=== PATIENT | female | born 1985 | race Caucasian/White ===

== ENCOUNTER 2018-06-06 16:56 | Emergency (ER) | payer MEDICAID ==
[2018-06-06] MEDS ORDERED: HYDROCODONE/APAP 5/325MG TABLET PO ONE (18:45)
--- NOTE | 2018-06-06 18:57 | Emergency Department Record ---
History of Present Illness - General Chief Complaint: Multiple trauma Stated Complaint: INJURY TO RT HAND Time Seen by Provider: 06/06/18 18:45 Source: Patient Mode of Arrival: Ambulatory Limitations: No limitations - History of Present Illness Initial Comments: pt hit wall last night w alon gandhi MD Complaint: Injury Location - Extremities: Right: Forearm, Hand Consistency: Constant - Related Data Home Medications Medication Instructions Recorded Confirmed Last Taken No Home Med [NO HOME MEDS] 06/06/18 06/06/18 Unknown Allergies Allergy/AdvReac Type Severity Reaction Status Date / Time amoxicillin [From Augmentin] Allergy HIVES Verified 06/06/18 17:39 cefazolin Allergy HIVES Verified 06/06/18 17:41 clavulanic acid Allergy HIVES Verified 06/06/18 17:39 [From Augmentin] Penicillins Allergy HIVES Verified 06/12/14 13:11 sulfamethoxazole Allergy HIVES Verified 06/06/18 17:39 [From Bactrim] trimethoprim [From Bactrim] Allergy HIVES Verified 06/06/18 17:39 Travel Screening - Travel/Exposure Within Last 30 Days Have you traveled within the last 30 days?: No - Travel/Exposure Within Last Year Have you traveled outside the [place] in the last year?: No - Additonal Travel Details Have you been exposed to anyone with a communicable illness?: No - Travel Symptoms Symptom Screening: None Review of Systems Reviewed: No additional complaints except as noted below Constitutional: Reports: As per HPI. Denies: Chills, Fever, Malaise, Night sweats, Weakness, Weight change Eyes: Reports: As per HPI. Denies: Eye discharge, Eye pain, Photophobia, Vision change ENT: Reports: As per HPI. Denies: Congestion, Dental pain, Ear pain, Epistaxis , Hearing loss, Throat pain Respiratory: Reports: As per HPI. Denies: Cough, Dyspnea, Hemoptysis, Stridor, Wheezes Cardiovascular: Reports: As per HPI. Denies: Arrhythmia, Chest pain, Dyspnea on exertion, Edema, Murmurs, Orthopnea, Palpitations, Paroxysmal nocturnal dyspnea, Rheumatic Fever, Syncope Endocrine: Reports: As per HPI. Denies: Fatigue, Heat or cold intolerance, Polydipsia, Polyuria Gastrointestinal: Reports: As per HPI. Denies: Abdominal pain, Constipation, Diarrhea, Hematemesis, Hematochezia, Melena, Nausea, Vomiting Genitourinary: Reports: As per HPI. Denies: Abnormal menses, Discharge, Dyspareunia, Dysuria, Frequency, Hematuria, Incontinence, Retention, Urgency Musculoskeletal: Reports: As per HPI. Denies: Arthralgia, Back pain, Gout, Joint swelling, Myalgia, Neck pain Skin: Reports: As per HPI. Denies: Bruising, Change in color, Change in hair/ nails, Lesions, Pruritus, Rash Neurological: Reports: As per HPI. Denies: Abnormal gait, Confusion, Headache, Numbness, Paresthesias, Seizure, Tingling, Tremors, Vertigo, Weakness Psychiatric: Reports: As per HPI. Denies: Anxiety, Auditory hallucinations, Depression, Homicidal thoughts, Suicidal thoughts, Visual hallucinations Hematological/Lymphatic: Reports: As per HPI. Denies: Anemia, Blood Clots, Easy bleeding, Easy bruising, Swollen glands Past Medical History - SOCIAL HISTORY Smoking Status: Never smoker Alcohol Use: None Drug Use: None - RESPIRATORY Hx Respiratory Disorders: No - CARDIOVASCULAR Hx Cardio Disorders: No - NEURO Hx Neuro Disorders: No - GI Hx GI Disorders: No - Hx Genitourinary Disorders: No - ENDOCRINE Hx Endocrine Disorders: No - MUSCULOSKELETAL Hx Musculoskeletal Disorders: No - PSYCH Hx Psych Problems: Yes Hx Anxiety: Yes - HEMATOLOGY/ONCOLOGY Hx Hematology/Oncology Disorders: No Family Medical History Any Significant Family History?: Yes Hx Alcohol Use: Mother Hx Heart Disease: Grandparents Physical Exam - General General Appearance: Alert, Oriented x3, Cooperative, Mild distress - Head Head exam: Normal inspection - Eye Eye exam: Normal appearance, PERRL, EOMI Pupils: Normal accommodation - ENT ENT exam: Normal exam, Mucous membranes moist, Normal external ear exam, Normal orophraynx Ear exam: Normal external inspection. negative: External canal tenderness Nasal Exam: Normal inspection. negative: Discharge, Sinus tenderness Mouth exam: Normal external inspection, Tongue normal Teeth exam: Normal inspection. negative: Dental caries Throat exam: Normal inspection. negative: Tonsillar erythema, Tonsillar exudate - Neck Neck exam: Normal inspection, Full ROM. negative: Tenderness - Respiratory Respiratory exam: Normal lung sounds bilaterally. negative: Respiratory distress - Cardiovascular Cardiovascular Exam: Regular rate, Normal rhythm, Normal heart sounds - GI/Abdominal GI/Abdominal exam: Soft, Normal bowel sounds. negative: Tenderness - Rectal Rectal exam: Deferred - exam: Deferred - Extremities Extremities exam: Normal capillary refill, Tenderness Image of Hand: 1 - ecchymosis - Back Back exam: Reports: Normal inspection, Full ROM. Denies: Muscle spasm, Rash noted, Tenderness - Neurological Neurological exam: Alert, CN II-XII intact, Normal gait, Oriented X3 - Psychiatric Psychiatric exam: Normal affect, Normal mood - Skin Skin exam: Dry, Intact, Normal color, Warm Course Vital Signs 06/06/18 17:28 Temperature 98.5 F Pulse Rate 71 Respiratory 17 Rate Blood Pressure 130/90 Pulse Ox 97 Disposition Disposition: Discharge Clinical Impression: Fracture of hand Qualifiers: Encounter type: initial encounter Fracture type: closed Laterality: right Qualified Code(s): S62.91XA - Unspecified fracture of right wrist and hand, initial encounter for closed fracture Disposition: Home, Self-Care Condition: (1) Good Instructions: Hand Fracture (ED) Additional Instructions: follow up with dr loaiza. return sooner if worse. ice and elevate. motrin for pain. Referrals: PEBBLES LOAIZA [DOCTOR OF OSTEOPATH] - [facility] Specialty Clinics [Provider Group] Quality - Quality Measures Quality Measures: N/A - Blood Pressure Screening Does Patient Have Any of the Following: No Blood Pressure Classification: Hypertensive Reading Systolic Measurement: 130 Diastolic Measurement: 90 Screening for High Blood Pressure: < Pre-Hypertensive BP, F/U Documented > [ G8950] Pre-Hypertensive Follow-up Interventions: Follow-up with rescreen every year.
--- NOTE | 2018-06-07 09:22 | RADIOLOGY REPORT ---
EXAM: RIGHT HAND, THREE VIEWS HISTORY: PAIN IN FOURTH AND FIFTH DIGIT REGION AFTER PUNCHING WALL. TECHNIQUE: Three views of the right hand were obtained. Comparison: None. Encounter: Initial. FINDINGS: There is normal bone mineralization. There is subtle obliquely oriented linear lucency involving the distal aspect of the fifth metacarpal extending to the lateral cortical surface suspicious for nondisplaced fracture. Its distal extent is not optimally delineated and intraarticular extension would be difficult to exclude. No other osseous evidence of fracture nor is there dislocation. The articular relations are otherwise unremarkable. IMPRESSION: NONDISPLACED FRACTURE OF THE DISTAL ASPECT OF THE FIFTH METACARPAL SUGGESTED. THE DISTAL EXTENT OF THIS FRACTURE IS INDETERMINATE WITH AN INTRAARTICULAR EXTENSION NOT EXCLUDED. JOB NUMBER: [id number] MTDD
== END 2018-06-06 19:08 | disposition home or self-care (01) ==
LOC: ER 16:56
DX: S62.306A Unspecified fracture of fifth metacarpal bone, right hand, initial encounter for closed fracture (principal); W22.8XXA Striking against or struck by other objects, initial encounter
CPT/HCPCS: 99283

== ENCOUNTER 2018-09-26 06:16 | Emergency (ER) | payer MEDICAID ==
[2018-09-26] MEDS ORDERED: HYOSCYAMINE SULFATE ODT 0.125 MG TAB.SUBL SL ONE (06:23)
[2018-09-26] MEDS ORDERED: 0.9 % SODIUM CHLORIDE 1000ML 1,000 ML IV SCH (06:30)
[2018-09-26 06:32] LABS: BASO % 0.1 % (0-6); GRAN % 79.6 % (47-80); HEMATOCRIT 45.7 % (35.0-47.0); HEMOGLOBIN 15.9 gm/dl (11.6-16.0); LYMPH % 16.6 % (16-45); MEAN CELL VOLUME 89.1 fl (81-97); MEAN CORPUSCULAR HGB CONC 34.8 g/dl (32-36); MEAN PLATELET VOLUME 10.4 fl (7.4-10.4); MONO % 3.7 % (0-9); PLATELET COUNT 296 K/uL (130-400); RED BLOOD COUNT 5.13 M/uL (3.80-5.40); RED CELL DISTRIBUTION WIDTH 12.1 % (11.5-14.5); WHITE BLOOD COUNT W/O DIFF 10.4 K/uL (4.2-12.2)
--- NOTE | 2018-09-26 06:36 | Emergency Department Record ---
History of Present Illness - General Chief Complaint: Abdominal Pain Stated Complaint: ABDOMINAL PAIN Time Seen by Provider: 09/26/18 06:18 Source: Patient Mode of Arrival: EMS Limitations: No limitations - History of Present Illness Initial Comments: 33 yo female presents to ED for evaluation LUQ/LLQ abdominal pain symptoms that began yesterday. Patient reports the onset of pain symptoms that precipitates vomiting. Patient denies fevers, chills, or urinary symptoms. Patient denies health problems at her baseline, reports previous tubal ligation, daisy, and appendectomy. MD Complaint: Abdominal pain Onset/Timin -: Hour(s) Location: LUQ, LLQ Radiation: None Severity: Severe Severity scale (1-10): 7 Quality: Cramping Consistency: Intermittent, Getting worse Improves With: Nothing Worsens With: Nothing Associated Symptoms: Diarrhea, Nausea, Vomiting - Related Data Patient : No Previous Rx's Medication Instructions Recorded Hyoscyamine Sulfate [Levsin-Sl] 0.25 mg SL Q8H PRN #15 tab.subl 09/26/18 Ondansetron [Zofran Odt] 4 mg PO Q6H PRN #15 tab.rapdis 09/26/18 Allergies Allergy/AdvReac Type Severity Reaction Status Date / Time amoxicillin [From Augmentin] Allergy HIVES Verified 06/06/18 17:39 cefazolin Allergy HIVES Verified 06/06/18 17:41 clavulanic acid Allergy HIVES Verified 06/06/18 17:39 [From Augmentin] Penicillins Allergy HIVES Verified 06/12/14 13:11 sulfamethoxazole Allergy HIVES Verified 06/06/18 17:39 [From Bactrim] trimethoprim [From Bactrim] Allergy HIVES Verified 06/06/18 17:39 Travel Screening - Travel/Exposure Within Last 30 Days Have you traveled within the last 30 days?: No Review of Systems Constitutional: Denies: Chills, Fever, Malaise, Night sweats Eyes: Denies: Eye discharge, Eye pain ENT: Denies: Congestion, Ear pain, Epistaxis Respiratory: Denies: Cough, Dyspnea Cardiovascular: Denies: Chest pain, Dyspnea on exertion Endocrine: Denies: Fatigue, Heat or cold intolerance Gastrointestinal: Reports: Abdominal pain, Nausea, Vomiting. Denies: Constipation Genitourinary: Denies: Incontinence, Retention Musculoskeletal: Denies: Arthralgia, Back pain Skin: Denies: Bruising, Change in color Neurological: Denies: Abnormal gait, Confusion, Headache, Seizure Psychiatric: Denies: Anxiety Hematological/Lymphatic: Denies: Anemia, Blood Clots Past Medical History - SOCIAL HISTORY Smoking Status: Never smoker Alcohol Use: None Drug Use: None - RESPIRATORY Hx Respiratory Disorders: No - CARDIOVASCULAR Hx Cardio Disorders: No - NEURO Hx Neuro Disorders: No - GI Hx GI Disorders: No - Hx Genitourinary Disorders: No - ENDOCRINE Hx Endocrine Disorders: No - MUSCULOSKELETAL Hx Musculoskeletal Disorders: No - PSYCH Hx Psych Problems: Yes Hx Anxiety: Yes - HEMATOLOGY/ONCOLOGY Hx Hematology/Oncology Disorders: No Family Medical History Any Significant Family History?: Yes Hx Alcohol Use: Mother Hx Heart Disease: Grandparents Physical Exam - General General Appearance: Alert, Oriented x3, Cooperative, Moderate distress Limitations: No limitations - Head Head exam: Atraumatic, Normocephalic, Normal inspection Head exam detail: negative: Abrasion, Contusion, Curtis's sign, General tenderness, Hematoma, Laceration - Eye Eye exam: Normal appearance. negative: Conjunctival injection, Periorbital swelling, Periorbital tenderness, Scleral icterus - ENT Ear exam: negative: Auricular hematoma, Auricular trauma Nasal Exam: negative: Active bleeding, Discharge, Dried blood, Foreign body Mouth exam: negative: Drooling, Laceration, Tongue elevation - Neck Neck exam: Normal inspection. negative: Meningismus, Tenderness - Respiratory Respiratory exam: Normal lung sounds bilaterally. negative: Rales, Respiratory distress, Rhonchi, Stridor - Cardiovascular Cardiovascular Exam: Regular rate, Normal rhythm, Normal heart sounds - GI/Abdominal GI/Abdominal exam: Soft, Tenderness (TTP LUQ, LLQ on examination, no rebound or guarding symptoms are present.). negative: Rebound, Rigid - Rectal Rectal exam: Deferred - exam: Deferred - Extremities Extremities exam: Normal inspection. negative: Calf tenderness, Pedal edema, Tenderness - Back Back exam: Denies: CVA tenderness (R), CVA tenderness (L) - Neurological Neurological exam: Alert, Normal gait, Oriented X3 - Psychiatric Psychiatric exam: Normal affect, Normal mood - Skin Skin exam: Normal color. negative: Abrasion Type of lesion: negative: abrasion Course Vital Signs 09/26/18 06:09 Temperature 98.6 F Pulse Rate 107 H Respiratory 20 Rate Blood Pressure 141/107 Pulse Ox 94 L - Reevaluation(s) Reevaluation #1: 09/26/18 06:47 Laboratory studies were reviewed and are grossly unremarkable for an acute process. Patient is going for CT imaging at this time. Reevaluation #2: 09/26/18 07:12 Patient is back from CT imaging, reports nausea symptoms have worsened. Reglan/Benadryl ordered to infuse. Reevaluation #3: 09/26/18 07:46 CT Abdomen and Pelvis: NO acute inflammatory process identified. UA pending. Patient was updated on all results thus far, reports that she is feeling much improved. Will reassess and update when UA has resulted. Reevaluation #4: 09/26/18 08:10 UA reviewed and appears negative for infection. Patient is tolerating PO at this time, appears stable for discharge at this time with Levsin and Zofran for symptomatic treatment as directed. Patient agrees with the plan of care as discussed. Medical Decision Making - Lab Data Result diagrams: 09/26/18 06:20 09/26/18 06:20 Disposition Disposition: Discharge Clinical Impression: Nausea vomiting and diarrhea Abdominal pain Qualifiers: Abdominal location: left lower quadrant Qualified Code(s): R10.32 - Left lower quadrant pain Disposition: Home, Self-Care Condition: (2) Stable Instructions: Abdominal Pain (ED) Additional Instructions: Return to ED if your symptoms worsen or if you have any concerns. Levsin and Zofran as directed. Follow-up with your family doctor in 1-3 days as directed. Prescriptions: Hyoscyamine Sulfate [Levsin-Sl] 0.25 mg SL Q8H PRN #15 tab.subl PRN Reason: Abdominal Pain Ondansetron [Zofran Odt] 4 mg PO Q6H PRN #15 tab.rapdis PRN Reason: Nausea/Vomiting Forms: Patient Portal Access Time of Disposition: 08:12 Quality - Quality Measures Quality Measures: N/A - Blood Pressure Screening Does Patient Have Any of the Following: No Blood Pressure Classification: Hypertensive Reading Systolic Measurement: 141 Diastolic Measurement: 107 Screening for High Blood Pressure: < First Hypertensive BP, F/U Documented > [ G8950] First Hypertensive Follow-up Interventions: Referral to alternative/primary care provider.
[2018-09-26 06:41] LABS: BLOOD UREA NITROGEN 12 mg/dL (6-20); CREATININE 0.7 mg/dL (0.5-0.9); EST GLOMERULAR FILTRATION RATE > 60 mL/min; TOTAL PROTEIN 7.1 g/dL (6.6-8.7)
[2018-09-26 06:44] LABS: GLUCOSE,RANDOM 131 mg/dL (74-109)
[2018-09-26 06:46] LABS: ALB/GLOB RATIO 1.7 (1.1-1.8); ALBUMIN 4.5 g/dL (4.0-5.0); ALKALINE PHOSPHATASE 147 U/L (35-104); ALT/SGPT 44 U/L (<33); AST/SGOT 28 U/L (10.0-35.0); LIPASE 24 U/L (13-60)
[2018-09-26] MEDS ORDERED: METOCLOPRAMIDE HCL 10 MG/2 ML VIAL IVP ONE (07:12)
[2018-09-26] MEDS ORDERED: DIPHENHYDRAMINE HCL 50 MG/ML VIAL IVP ONE (07:12)
[2018-09-26 08:02] LABS: URINE APPEARANCE CLOUDY; URINE BILIRUBIN NEGATIVE (NEGATIVE); URINE BLOOD NEGATIVE (NEGATIVE); URINE COLOR YELLOW; URINE GLUCOSE (UA) NEGATIVE (NEGATIVE); URINE KETONE NEGATIVE (NEGATIVE); URINE LEUKOCYTE ESTERASE NEGATIVE (NEGATIVE); URINE NITRITE NEGATIVE (NEGATIVE); URINE PROTEIN NEGATIVE (NEGATIVE); URINE UROBILINOGEN 0.2 E.U./dL (0.20 - 1.00)
--- NOTE | 2018-09-27 11:14 | CT SCAN REPORT ---
EXAM: CT SCAN OF THE ABDOMEN AND PELVIS WITH CONTRAST HISTORY: LEFT SIDED ABDOMINAL PAIN WITH NAUSEA, VOMITING, AND DIARRHEA FOR THE PAST FEW DAYS. TECHNIQUE: Standard CT imaging of the abdomen and pelvis was performed with intravenous contrast. 100 ml of Omnipaque 300 were administered. Comparison: 06/12/14. FINDINGS: The lung bases are clear. The liver is unremarkable. The gallbladder is surgically absent. The biliary tree, pancreas, spleen, and adrenal glands are normal. The kidneys and ureters are unremarkable. The aorta is normal in caliber. There is no retroperitoneal lymphadenopathy. The stomach and epigastrium are unremarkable. The colon is decompressed. Minor wall thickening is likely artifactual due to the decompressed state. There are no surrounding inflammatory changes. The small bowel loops are normal in caliber. There is no pneumoperitoneum or ascites. The uterus and adnexa are normal. The urinary bladder is unremarkable. There is a small fat containing umbilical hernia. There is bilateral spondylolysis at the L5 level with minor spondylolisthesis of L5 on S1. IMPRESSION: 1. NO ACUTE INTRAABDOMINAL PATHOLOGY. 2. SMALL FAT CONTAINING UMBILICAL HERNIA. 3. BILATERAL SPONDYLOLYSIS AT THE L5 LEVEL WITH MINOR ANTEROLISTHESIS OF L5 ON S1. JOB NUMBER: [id number] MTDD
== END 2018-09-26 08:30 | disposition home or self-care (01) ==
LOC: ER 06:16
DX: R10.32 Left lower quadrant pain (principal); R11.2 Nausea with vomiting, unspecified; R19.7 Diarrhea, unspecified
CPT/HCPCS: 74177; 80053; 81003; 83690; 84703; 85025; 96361; 96374; 96375; 99284; J1200; J2765; J7030